=== PATIENT | female | born 1995 | race Caucasian/White ===

== ENCOUNTER 2019-08-05 00:06 | Emergency (ER) | payer OTHER ==
[~2019-08-05] VITALS: Ht 154.9 cm; Wt 66.7 kg
[~2019-08-05 00:06] MED LIST: CEPH-570 PO; OXYC-128 PO
--- NOTE | 2019-08-05 00:44 | NUR ---
BIBFAMILY FROM HOME. TO ER BED 4. AAOX4. NOT IN RESP DISTRESS. AMBULATORY. C/O RIGHT FOREARM PAIN. PT REPORTS THAT HER ARM HAS BEEN HURTING FOR THE PAST 2 MONTH BUT TODAY IT GOT VERY EXCRUSIATING BECAUSE SHE THREW SOMETHING USING HER RIGHT ARM FORCEFULLY THEN PAIN STARTED. PAIN IS REPORTED 10/10 [facility]. HAND RADIATING EXTENDING TO ELBOW. SENSATION FELT DISTALLY. PULSE FELT. ROM LIMITED D/T PAIN. MD WAS AT BEDSIDE FOR EVAL. ORDERS RECEIVED NOTED AND CARRIED OUT. XRAY AT BEDSIDE
[2019-08-05] MEDS ORDERED: IBUPROFEN 600 MG TABLET PO ONE ×2 (01:00→01:14)
[2019-08-05 01:34] VITALS: BP 118/76
--- NOTE | 2019-08-05 01:34 | NUR ---
EMT AT BEDSIDE FOR SPLINT AND SLING
== END 2019-08-05 01:35 | disposition home or self-care (01) ==
LOC: ER 00:10
DX: S56.811A Strain of other muscles, fascia and tendons at forearm level, right arm, initial encounter (principal); Z98.890 Other specified postprocedural states; Z79.899 Other long term (current) drug therapy; X58.XXXA Exposure to other specified factors, initial encounter; Y93.89 Activity, other specified; Y92.89 Other specified places as the place of occurrence of the external cause; Y99.8 Other external cause status
CPT/HCPCS: 73090-TC; 73110